=== PATIENT | male | born 2000 | race Hispanic/Latino ===

== ENCOUNTER 2024-03-28 15:37 | Emergency (ER) | payer SELFPAY ==
[~2024-03-28] VITALS: Ht 175.3 cm; Wt 81.6 kg
--- NOTE | 2024-03-28 17:14 | ERN ---
ED Note History of Present Illness Stated Complaint: RIGHT ARM INJURY Chief Complaint: Arm Swelling/Redness Time Seen by MD: 17:07 Time Seen by Midlevel: 17:07 Dictation: Patient is a 23-year-old male with no past medical history who presents to the emergency department with complaints of right elbow pain after he accidentally injured while playing fighting with a friend. Patient reports friend the wound arm. Patient denies any other injuries. Allergies: Coded Allergies: No Known Drug Allergies (Unverified Allergy, Unknown, 03/28/24) Home Meds Active Scripts Ibuprofen (Ibuprofen) 600 Mg Tablet, 600 MG PO Q6H PRN for PAIN, #10 TAB Prov:CAM TORO RENTAL REPRESENTATIVE 03/28/24 Past Medical History Past Medical History: No Pertinent History Surgical History: None RN Note Reviewed/Agreed w/PFSH: Yes Review of System Dictation Constitutional: Negative for fever,chills, and weight loss Eyes: Negative for injury, pain,redness, and discharge ENT: Negative for injury,pain or swelling Cardiovascular: Negative for chest pain, palpitations, and edema Respiratory: Negative for shortness of breath, cough, and wheezing, Abdomen/GI: Negative for abdominal pain, nausea, vomiting, diarrhea, and constipation Back: Negative for injury and pain : Negative for injury, bleeding and discharge MS/Extremity: Positive for right elbow pain, injury Skin: Negative for rash, and discoloration Neuro: Negative for headache, weakness, numbness, tingling, and seizure Psych: Negative for suicide ideation, homicidal ideation, and hallucinations Initial Vital Sign VS Vital Signs Date Time Temp Pulse Resp B/P (MAP) Pulse Ox O2 Delivery O2 Flow Rate FiO2 03/28/24 15:40 98.6 86 20 135/110 99 Room Air 0 Physical Exam Dictation Vital Signs reviewed General Appearance: Alert, oriented x 3, no acute distress, well developed, nourished. Head and Face: non-traumatic. Eyes: PERRL, pink conjunctivas, eyelid no trauma, anterior chamber with arcus senilis. Ears: Pinnas intact and no signs of trauma or erythema ear canals clear and no discharge TM no erythema Nose: No discharge, no bleeding. Oropharynx: Mouth normal, tongue pink. pharynx clear,no erythema, tonsils no exudates, no abscesses noted, mucous membrane moist Neck: Supple, non-tender, no thyromegaly, no masses, no JVD, no bruits Breast:Deferred Chest:No tenderness, no crepitus, no paradoxical movement, no retractions Lungs:Clear, well-ventilated, symmetric, no rales, no wheezing, no rhonchi, no stridor, good breath sounds bilaterally Heart: Regular rate, regular rhythm, no murmur, no gallops Vascular: no peripheral edema, Abdomen: Soft, positive bowel sounds, nondistended, no guarding, nontender, no rebound, no masses no hepatomegaly, no splenomegaly, no Higgins's sign, no hernias. Rectal: Deferred Genital: Deferred Neurological: Normal speech, motor function intact, sensory function intact Musculoskeletal: Neck nontender, full range of motion, back nontender, full range of motion, Extremities: nontender, full range of motion , tenderness to right elbow on palpation, full range of motion, no open wounds, cap refill less than 2 seconds Skin: Color pink, dry, no turgor, no rash, no lacerations, no abrasions, no contusions. Lymphatic: Deferred Results (Laboratory/Radiology) Laboratory/Radiology REASON: TRAUMA ORDERING PHYSICIAN: PRIMO JADE MD PROCEDURE: [id number] RT - ELBOW COMP 3+VWS RT RIGHT ELBOW RADIOGRAPHS - 3 VIEWS INDICATION: Pain COMPARISON: None FINDINGS: AP, lateral, and oblique views. No acute fracture or subluxation identified. No significant joint effusion is present. No radiopaque foreign body noted. IMPRESSION: No evidence for fracture or dislocation. Labs Reviewed?: Yes ED Course ED Course Orders Procedure Category Date Status Time Elbow Comp 3+Vws Rt RAD 03/28/24 Resulted 16:18 Ibuprofen 800 Mg Tab PHA 03/28/24 Complete (Motrin) 17:30 Apply Chris Wrap (Er) CPOE 03/28/24 Transmitted 17:37 Current Medications Medications (Trade) Dose Ordered Sig/Caleb Route PRN Reason Start Time Stop Time Status Last Admin Dose Admin Ibuprofen (moTRIN) 800 mg ONCE ONCE PO 03/28/24 17:30 03/28/24 17:31 DC 03/28/24 17:34 Vital Signs Date Time Temp Pulse Resp B/P (MAP) Pulse Ox O2 Delivery O2 Flow Rate FiO2 03/28/24 15:40 98.6 86 20 135/110 99 Room Air 0 Medical Decision Making MDM Patient is a 23-year-old male with no past medical history who presents to the emergency department with complaints of right elbow pain after he accidentally injured while playing fighting with a friend. Patient reports friend the wound arm. Patient denies any other injuries. Xray showed no acute fractures or dislocations. Patient with full ROM in no acute distress. Differential diagnosis: Elbow fractured, elbow contusion, elbow dislocation Need for hospitalization: Patient does not meet criteria for hospitalization. There are no social concerns with this patient. DX & DISP Disposition: Discharge Departure Impression: Primary Impression: Sprain of elbow, right Additional Impression: Right elbow pain Condition: Stable Scripts Ibuprofen (Ibuprofen) 600 Mg Tablet 600 MG PO Q6H PRN for PAIN, #10 TAB Prov: CAM TORO 03/28/24 Additional Instructions: Please follow up with pcp in 1-2 days. Return if symptoms worsen. FOLLOW-UP WITH PRIMARY CARE PROVIDER IN 1 TO 2 DAYS. TAKE MEDICATIONS DIRECTED HERE IN THE EMERGENCY ROOM. OKAY TO CONTINUE HOME MEDICATIONS UNLESS OTHERWISE DISCUSSED DURING YOUR VISIT IN THE EMERGENCY ROOM TODAY. RETURN TO YOUR NEAREST EMERGENCY ROOM IF SYMPTOMS WORSEN OR IF THERE IS NO IMPROVEMENT. CALL 911 IF YOU NEED IMMEDIATE ASSISTANCE. TAKE TYLENOL OR MOTRIN [id number] NEEDED AND IF NO CONTRAINDICATIONS ARE PRESENT. INCREASE ORAL HYDRATION. A WOUND CULTURE OR URINE CULTURE WAS ORDERED HERE IN THE EMERGENCY ROOM DEPARTMENT PLEASE FOLLOW-UP WITH PRIMARY CARE PROVIDER AND ADVISE THEM TO GET REPEAT PORTS FROM OUR FACILITY. IF YOU HAD ANY CHRIS WRAP/SPLINTS THAT WERE APPLIED HERE, PLEASE DO NOT REMOVE THEM UNTIL YOU SEE YOUR PRIMARY CARE OR SPECIALTY. Referrals: SELF,REFERRAL (PCP) LEIGHTON CARTER DO Time of Disposition: 17:32 I have reviewed the case, and I agree with, Diagnosis and Plan CAM TORO Mar 28, 2024 17:14
--- NOTE | 2024-03-28 17:23 | HMCIMG ---
RIGHT ELBOW RADIOGRAPHS - 3 VIEWS INDICATION: Pain COMPARISON: None FINDINGS: AP, lateral, and oblique views. No acute fracture or subluxation identified. No significant joint effusion is present. No radiopaque foreign body noted. IMPRESSION: No evidence for fracture or dislocation.
[2024-03-28] MEDS: ibuPROFEN 800 MG TAB PO ONE (17:34)
[2024-03-28] MEDS ORDERED: IBUP-2070 PO (17:35)
[2024-03-28 18:15] VITALS: BP 109/56; PULSE 75; RESP 17; TEMP 99.4; O2SAT 99
--- NOTE | 2024-03-28 18:18 | NUR ---
robbie wrap applied
== END 2024-03-28 18:26 | disposition home or self-care (01) ==
LOC: EDH 15:37
DX: S53.401A Unspecified sprain of right elbow, initial encounter (principal); M25.521 Pain in right elbow; X58.XXXA Exposure to other specified factors, initial encounter; Y93.89 Activity, other specified; Y92.89 Other specified places as the place of occurrence of the external cause; Y99.8 Other external cause status
CPT/HCPCS: 73080; 99284

== ENCOUNTER 2024-05-11 16:06 | Emergency (ER) | payer OTHER ==
[~2024-05-11] VITALS: Ht 177.8 cm; Wt 81.6 kg
[~2024-05-11 16:06] MED LIST: IBUP-2070 PO
--- NOTE | 2024-05-11 16:14 | ERN ---
ED Note History of Present Illness Stated Complaint: BACK INJURY Chief Complaint: Back Pain or Injury Time Seen by MD: 16:10 Dictation: Patient is a 23-year-old male states he was working with some heavy machinery i and twisting at his low back back and forth. He is then he stopped and then reached over and felt a pain. No radicular pain or sciatica. Denies any history of back injury surgeries etc. onset was 30 minutes prior to arrival. He has taken nothing prior to arrival for pain. Allergies: Coded Allergies: No Known Drug Allergies (Unverified Allergy, Unknown, 03/28/24) Home Meds Active Scripts Cyclobenzaprine HCl (Cyclobenzaprine HCl) 10 Mg Tablet, 1 TAB PO TID for muscle spasms for 10 Days, #30 TAB 0 Refills Prov:ROSANA MAYNARD [employer] HRMS DEVELOPER 05/11/24 Ibuprofen (Ibuprofen 800 mg Tab) 800 Mg Tab, 800 MG PO Q8H PRN for fever or pain, #30 TAB 0 Refills Prov:ROSANA MAYNARD [employer]OPLESOFT HRMS DEVELOPER 05/11/24 Methylprednisolone (Medrol) 4 Mg Tab.ds.pk, 1 TAB PO AD for 6 Days, #21 TAB 0 Refills 6 on day 1 then reduce by one tablet daily until gone Prov:ROSANA MAYNARD NP 05/11/24 Ibuprofen (Ibuprofen) 600 Mg Tablet, 600 MG PO Q6H PRN for PAIN, #10 TAB Prov:CAM TORO MEDICAL BILLING CODER 03/28/24 Past Medical History Past Medical History: No Pertinent History Surgical History: None RN Note Reviewed/Agreed w/PFSH: Yes Review of System Dictation CONSTITUTIONAL: Negative except for HPI HEAD/FACE: Negative except for HPI EENT: Negative except for HPI RESPIRATORY: Negative except for HPI GASTROINTESTINAL/ABDOMINAL: Negative except for HPI GENITOURINARY: Negative except for HPI MUSCULOSKELETAL: Negative except for HPI acute low back pain INTEGUMENTARY: Negative except for HPI NEUROLOGICAL/PSYCH: Negative except for HPI HEMATOLOGIC/LYMPHATIC: Negative except for HPI All Systems Negative, Except as noted above. 13 point review of systems assessed and all negative except for above. Initial Vital Sign VS Vital Signs Date Time Temp Pulse Resp B/P (MAP) Pulse Ox O2 Delivery O2 Flow Rate FiO2 05/11/24 16:11 98.1 80 16 126/91 99 Room Air 05/11/24 16:28 0 21 Physical Exam Dictation Vital Signs reviewed General Appearance: Alert, oriented x 3, moderate acute distress, well developed, nourished. Head and Face: non-traumatic. Eyes: PERRL, pink conjunctivas, eyelid no trauma, anterior chamber with arcus senilis. Ears: Pinnas intact and no signs of trauma or erythema ear canals clear and no discharge TM no erythema Nose: No discharge, no bleeding. Oropharynx: Mouth normal, tongue pink, pharynx clear,no erythema, tonsils no exudates, no abscesses noted, mucous membrane moist Neck: Supple, non-tender, no thyromegaly, no masses, no JVD, no bruits Breast:Deferred Chest:No tenderness, no crepitus, no paradoxical movement, no retractions Lungs:Clear, well-ventilated, symmetric, no rales, no wheezing, no rhonchi, no stridor, good breath sounds bilaterally Heart: Regular rate, regular rhythm, no murmur, no gallops Vascular: no peripheral edema, Abdomen: Soft, positive bowel sounds, nondistended, no guarding, nontender, no rebound, no masses no hepatomegaly, no splenomegaly, no Higgins's sign, no hernias. Rectal: Deferred Genital: Deferred Neurological: Normal speech, motor function intact, sensory function intact Musculoskeletal: Neck nontender, full range of motion, diffuse lumbosacral tenderness no midline spine pain or step-off negative straight leg 10 bilateral Extremities: nontender, full range of motion Skin: Color pink, dry, no turgor, no rash, no lacerations, no abrasions, no contusions. Lymphatic: Deferred Results (Laboratory/Radiology) Labs Reviewed?: Yes ED Course ED Course Orders Procedure Category Date Status Time Cyclobenzaprine Hcl PHA 05/11/24 Complete (Cyclobenzaprine Hcl 16:30 Dexamethasone 4mg/Ml PHA 05/11/24 Complete 1ml Vial (Dexametha 16:30 Hydrocodone/Apap PHA 05/11/24 Complete 5/325 ([place] 5/325mg) 16:30 Current Medications Medications (Trade) Dose Ordered Sig/Caleb Route PRN Reason Start Time Stop Time Status Last Admin Dose Admin Acetaminophen/ Hydrocodone Bitart (NORco 5/325MG) 1 tab ONCE ONCE PO 05/11/24 16:30 05/11/24 16:31 DC 05/11/24 16:38 Cyclobenzaprine HCl (Cyclobenzaprine HCl) 10 mg ONCE ONCE PO 05/11/24 16:30 05/11/24 16:31 DC 05/11/24 16:37 Dexamethasone Sodium Phosphate (dexaMETHasone 4MG/ML 1ML VIAL) 8 mg ONCE ONCE IM 05/11/24 16:30 05/11/24 16:31 DC 05/11/24 16:37 Vital Signs Date Time Temp Pulse Resp B/P (MAP) Pulse Ox O2 Delivery O2 Flow Rate FiO2 05/11/24 16:28 98.1 80 16 125/90 90 Room Air* 0 21 05/11/24 16:11 98.1 80 16 126/91 99 Room Air 1700/labs and imaging not indicated this time. This is a muscular injury, we will treat that empirically and we will discharge patient to see his primary care doctor in 1-2 days. No work until cleared by his Medical Decision Making MDM Medical discharge making based on empiric treatment for acute lumbosacral strain Discharged home ibuprofen and Flexeril/Medrol Dosepak Told he had three to 4 times a day to pain. No work until cleared by his doctor DX & DISP Disposition: Discharge Departure Impression: Primary Impression: Acute lumbosacral myofascial strain Condition: Stable Scripts Cyclobenzaprine HCl (Cyclobenzaprine HCl) 10 Mg Tablet 1 TAB PO TID for muscle spasms for 10 Days, #30 TAB 0 Refills Prov: ROSANA MAYNARD NP 05/11/24 Ibuprofen (Ibuprofen 800 mg Tab) 800 Mg Tab 800 MG PO Q8H PRN for fever or pain, #30 TAB 0 Refills Prov: ROSANA MAYNARD NP 05/11/24 Methylprednisolone (Medrol) 4 Mg Tab.ds.pk 1 TAB PO AD for 6 Days, #21 TAB 0 Refills 6 on day 1 then reduce by one tablet daily until gone Prov: ROSANA MAYNARD NP 05/11/24 Additional Instructions: Follow-up with primary care provider in 1 to 2 days. Take medications as directed here in the emergency room. Okay to continue home medications unless otherwise discussed during your visit in the emergency room today. Return to your nearest emergency room if symptoms worsen or if there is no improvement. Call 911 if you need immediate assistance. Take Tylenol or Motrin [id number] as needed and if no contraindications are present. Increase oral hydration. A wound culture or urine culture was ordered here in the emergency room department please follow-up with primary care provider and advise them to get repeat ports from our facility. If you had any Chris wrap/splints that were applied here, please do not remove them until you see your primary care or specialty. Take ibuprofen and Flexeril every8 hours with food for the next three days. Take Medrol Dosepak as directed until gone. No lifting greater than 10 lb and no repetitive movements until cleared by your doctor. Referrals: SELF,REFERRAL (PCP) Time of Disposition: 17:03 I have reviewed the case, and I agree with, Diagnosis and Plan ROSANA MAYNARD NP May 11, 2024 16:14 CARMINE PAYAN DO May 11, 2024 17:51
[2024-05-11 16:28] VITALS: BP 125/90; PULSE 80; RESP 16; TEMP 98; O2SAT 90
[2024-05-11] MEDS: CYCLOBENZAPRINE HCL 10 MG TABLET PO ONE (16:37)
[2024-05-11] MEDS: dexaMETHasone SOD PHOSPHATE 4 MG/ML 1ML VIAL IM ONE (16:37)
[2024-05-11] MEDS: HYDROcodone/APAP 5/325 1 TAB TABLET PO ONE (16:38)
[2024-05-11] MEDS ORDERED: IBUP-2077 PO (17:04)
[2024-05-11] MEDS ORDERED: CYCL-309 PO (17:04)
[2024-05-11] MEDS ORDERED: METH4TAB3 PO (17:04)
== END 2024-05-11 17:12 | disposition home or self-care (01) ==
LOC: EDH 16:06
DX: S39.012A Strain of muscle, fascia and tendon of lower back, initial encounter (principal); Z79.899 Other long term (current) drug therapy; X50.1XXA Overexertion from prolonged static or awkward postures, initial encounter; Y93.89 Activity, other specified; Y92.89 Other specified places as the place of occurrence of the external cause; Y99.0 Civilian activity done for income or pay
CPT/HCPCS: 99283; 96372; J1100